=== PATIENT | female | born 1965 | race Caucasian/White ===

== ENCOUNTER → 2017-04-10 | Outpatient (CLI) | payer BC ==
[2017-04-10 12:55] LABS: BASO % 0.3 % (0.0-1.0); EOS # 0.2 10^3/uL (0.0-0.50); EOS % 2.9 % (0.0-3.0); HEMATOCRIT 38.5 % (36.0-47.0); HEMOGLOBIN 13.1 g/dl (12.0-16.0); IMMATURE GRANULOCYTE % 0.3 % (0-0); LYMPH # 2.3 10^3/uL (1.5-4.5); LYMPH % 32.3 % (24.0-44.0); MONO # 0.5 10^3/uL (0.0-0.8); NEUTROPHILS % 57.2 % (36.0-66.0); PLATELET COUNT, AUTOMATED 275 10^3/uL (150-450); RED BLOOD COUNT 4.23 10^6/uL (4.00-5.40); RED CELL DISTRIBUTION WIDTH 12.2 % (11.5-14.5)
[2017-04-10 13:50] LABS: CHOLESTEROL LEVEL 278 MG/DL (<200); CHOLESTEROL RISK RATIO 3.657 (<5); GLUCOSE, FASTING 102 MG/DL (70-105); HDL CHOLESTEROL 76 MG/DL (>40); LDL CHOLESTEROL 169.4 MG/DL (<100); NON-HDL-C 202 MG/DL; TRIGLYCERIDES LEVEL 163 MG/DL (<150)
[2017-04-11 19:42] LABS: HEPATITIS C VIRUS ABY INDEX 0.1 INDEX (<0.8)
== END ==
LOC: M WUC 09:40
DX: N92.0 Excessive and frequent menstruation with regular cycle (principal)
CPT/HCPCS: 82947

== ENCOUNTER → 2020-08-29 | Outpatient (CLI) | payer BC ==
[2020-08-29 17:44] LABS: ESTRADIOL 99.4 PG/ML; FOLLICLE STIMULATING HORMONE 50.2 mIU/mL; LUTEINIZING HORMONE 87.9 mIU/mL; PROGESTERONE 0.88 NG/ML
[2020-08-31 18:07] LABS: TESTOSTERONE FREE (DIRECT) 0.8 pg/mL (0.0-4.2)
== END ==
LOC: M WUC 13:18
PROVIDERS: ATTEND Obstetrics & Gynecology
DX: N95.1 Menopausal and female climacteric states (principal); E34.9 Endocrine disorder, unspecified

== ENCOUNTER → 2020-09-04 | Outpatient (CLI) | payer BC ==
--- NOTE | 2020-09-04 21:57 | REP ---
INDICATION: PAIN IN RIGHT SHOULDER, PAIN IN RIGHT HIP,LOW BACK PAIN COMPARISON: None. TECHNIQUE: AP, lateral, bilateral oblique, and coned-down views of the lumbar spine. FINDINGS: Alignment and lordosis maintained. Vertebral bodies are intact. Disc spaces are relatively normal/age-appropriate, but there appears to be mild disc space narrowing at L5-S1. No acute fracture/compression injury or subluxation. No obvious spondylolysis or spondylolisthesis.. IMPRESSION: Mild disc space narrowing at L5-S1. Remainder of the examination appears relatively age-appropriate and within normal limits. <Electronically signed by Dayton Isidro > 09/04/20 [id number]
--- NOTE | 2020-09-04 22:00 | REP ---
INDICATION: PAIN IN RIGHT SHOULDER, PAIN IN RIGHT HIP,LOW BACK PAIN COMPARISON: None. TECHNIQUE: Internal rotation, external rotation, and Y view. FINDINGS: Mild cortical irregularity and subtle sclerosis at the acromioclavicular joint. There is evidence for old healed clavicle fracture. The glenohumeral joint appears intact and normal. Subacromial space is normal. No periarticular calcifications or loose bodies are identified. IMPRESSION: Mild degenerative changes involving the acromioclavicular joint. <Electronically signed by Dayton Isidro > 09/04/20 1945
--- NOTE | 2020-09-04 22:03 | REP ---
INDICATION: PAIN IN RIGHT SHOULDER, PAIN IN RIGHT HIP,LOW BACK PAIN COMPARISON: None. TECHNIQUE: AP and frog-lateral views of the left hip FINDINGS: Moderate osteoarthritic degenerative changes are appreciated. Findings include subchondral sclerosis, joint space narrowing, marginal spurring. No acute fracture or dislocation. IMPRESSION: Moderate osteoarthritic degenerative changes. <Electronically signed by Dayton Isidro > 09/04/20 [id number]
== END ==
LOC: M RAD 11:13
PROVIDERS: ATTEND Physician Assistant
DX: M25.552 Pain in left hip (principal); M54.5 Low back pain; M25.511 Pain in right shoulder; M16.12 Unilateral primary osteoarthritis, left hip; M19.011 Primary osteoarthritis, right shoulder

== ENCOUNTER → 2020-11-27 | Outpatient (CLI) | payer BC ==
[~2020-11-27] MED LIST: ISOVUE-300 61% 50ML VIAL As Ordered ONE; LIDOCAINE 1% MDV 20ML VIAL As Ordered ONE; TRIAMCINOLONE ACETONIDE SUSP 40 MG/ML VIAL (J3301) As Ordered ONE
--- NOTE | 2020-11-27 19:38 | REP ---
INDICATION: LT HIP OA. COMPARISON: None TECHNIQUE: The procedure was performed by RHONDA Gonzalez, under the direct supervision of Dr. Contreras. The benefits and risks of the procedure were explained to the patient, and an informed consent was obtained. Directly prior to the start of the procedure, a formal time-out was completed in the procedure room. The left femoral neck joint space was localized using fluoroscopic guidance. The skin was prepped and draped in a sterile fashion. Approximately 5 mL of 1% Lidocaine 10 mg/ml was used as a local anesthetic. Using fluoroscopic guidance, a #22 gauge spinal needle was inserted and advanced into the left femoral neck joint space. Approximately 1 mL of Isovue 300 was injected to verify placement. Six mL of a solution containing 5 mL 1% lidocaine 10 mg/ml and 1 mL Kenalog 40 milligrams/milliliter was injected into the joint space. The needle was removed and hemostasis was achieved. FINDINGS: The patient tolerated the procedure well and there were no immediate complications. IMPRESSION: 1. Fluoroscopically guided left hip intra-articular pain injection. 0.1 minutes of fluoroscopy time was utilized for this procedure. Some fluoroscopic images are performed with last image hold technology. These images require no additional radiation. <Electronically signed by Ju Mar > 11/27/20 1147 <Electronically signed by Paul Contreras > 11/27/20 [id number]
== END ==
LOC: M RADPRO 10:14
PROVIDERS: ATTEND Orthopaedic Surgery
DX: M16.12 Unilateral primary osteoarthritis, left hip (principal)
CPT/HCPCS: 20610; 77002; J3301; Q9967

== ENCOUNTER → 2020-12-27 | Outpatient (CLI) | payer BC ==
[2020-12-27 18:55] LABS: ESTRADIOL 184.3 PG/ML; FOLLICLE STIMULATING HORMONE 4.1 mIU/mL; LUTEINIZING HORMONE 5.1 mIU/mL; PROGESTERONE 0.21 NG/ML
== END ==
LOC: M WUC 10:23
PROVIDERS: ATTEND Obstetrics & Gynecology
DX: N95.1 Menopausal and female climacteric states (principal); E34.9 Endocrine disorder, unspecified; R53.83 Other fatigue

== ENCOUNTER → 2021-06-01 | Outpatient (CLI) | payer BC | LOC: M PLARAD 07:54 | PROVIDERS: ATTEND Orthopaedic Surgery | DX: M19.011 Primary osteoarthritis, right shoulder (principal); M85.811 Other specified disorders of bone density and structure, right shoulder ==

== ENCOUNTER → 2021-06-11 | Outpatient (CLI) | payer BC | LOC: M WHC 12:48 | PROVIDERS: ATTEND Obstetrics & Gynecology | DX: Z12.31 Encounter for screening mammogram for malignant neoplasm of breast (principal); Z80.0 Family history of malignant neoplasm of digestive organs; N60.11 Diffuse cystic mastopathy of right breast; N60.12 Diffuse cystic mastopathy of left breast ==

== ENCOUNTER → 2022-09-17 | Outpatient (CLI) | payer BC | LOC: M WHC 09:10 | PROVIDERS: ATTEND Obstetrics & Gynecology | DX: Z12.31 Encounter for screening mammogram for malignant neoplasm of breast (principal); Z13.820 Encounter for screening for osteoporosis; M85.89 Other specified disorders of bone density and structure, multiple sites ==

== ENCOUNTER → 2023-09-23 | Outpatient (CLI) | payer BC ==
[2023-09-23 14:35] LABS: LUTEINIZING HORMONE 35.6 mIU/ML; PROGESTERONE 0.25 NG/ML
[2023-09-23 14:36] LABS: ESTRADIOL 38.5 PG/ML; FOLLICLE STIMULATING HORMONE 61.7 mIU/ML
== END ==
LOC: M PLALAB 11:34
PROVIDERS: ATTEND Obstetrics & Gynecology
DX: Z01.419 Encounter for gynecological examination (general) (routine) without abnormal findings (principal); Z13.820 Encounter for screening for osteoporosis

== ENCOUNTER → 2024-01-23 | Outpatient (CLI) | payer BC ==
[2024-01-23 19:54] LABS: FOLLICLE STIMULATING HORMONE 16.4 mIU/ML
[2024-01-23 19:55] LABS: ESTRADIOL 44.4 PG/ML; LUTEINIZING HORMONE 8.2 mIU/ML; PROGESTERONE < 0.21 NG/ML
== END ==
LOC: M PLALAB 16:16
PROVIDERS: ATTEND Obstetrics & Gynecology
DX: N95.1 Menopausal and female climacteric states (principal); E34.9 Endocrine disorder, unspecified; R53.83 Other fatigue

== ENCOUNTER → 2024-06-24 | Outpatient (CLI) | payer BC ==
[2024-06-24 15:08] LABS: FOLLICLE STIMULATING HORMONE 87.1 mIU/ML; LUTEINIZING HORMONE 39.9 mIU/ML
[2024-06-24 15:09] LABS: ESTRADIOL < 19.0 PG/ML
[2024-06-24 15:11] LABS: PROGESTERONE < 0.21 NG/ML
== END ==
LOC: M PLALAB 10:51
PROVIDERS: ATTEND Obstetrics & Gynecology
DX: Z01.419 Encounter for gynecological examination (general) (routine) without abnormal findings (principal)